=== PATIENT | female | born 1995 | race Caucasian/White ===

== ENCOUNTER 2025-07-02 16:14 | Emergency (ER) | payer OTHER ==
[~2025-07-02] VITALS: Ht 157.5 cm; Wt 59.0 kg
--- NOTE | 2025-07-02 16:40 | NUR ---
"Been having abdominal pain since saturday cramping like. Worse now"
[2025-07-02] MEDS ORDERED: KETOROLAC TROMETHAMINE 15 MG/ML VIAL ONE (17:18)
[2025-07-02] MEDS: KETOROLAC TROMETHAMINE 15 MG/ML VIAL IM ONE (17:20)
[2025-07-02 17:36] LABS: APPEARANCE,URINE CLEAR (CLEAR); BLOOD, URINE 2+ Ery/uL (NEGATIVE); LEUKOCYTE ESTERASE ,URINE TRACE (NEGATIVE); NITRITE, URINE NEGATIVE (NEGATIVE); UGLUCOSE NEGATIVE (NEGATIVE)
[2025-07-02 17:38] LABS: PREGNANCY TEST URINE QUAL NEGATIVE (NEGATIVE)
[2025-07-02 17:59] LABS: ADD URINE CULTURE NO
[2025-07-02 18:03] LABS: PLATELET COUNT (AUTO) 223 K/uL (150-450); RED BLOOD CELL COUNT(AUTO) 4.64 MIL/uL (4.0-5.2); RED CELL DISTRIBUTION WIDTH 13.3 % (11.5-15.0); WHITE BLOOD COUNT (AUTO) 9.7 K/uL (4.3-11.0)
[2025-07-02 18:11] LABS: CALCIUM, SERUM 9.1 mg/dL (8.5-10.1); CREATININE 0.6 mg/dL (0.6-1.3); SODIUM SERUM 138.0 mmol/L (136-145); UREA NITROGEN, BLOOD 12.0 mg/dL (7-18)
[2025-07-02 18:17] LABS: ASPARTATE AMINOTRANSFERASE 22.0 U/L (15-37); TOTAL PROTEIN, SERUM 7.7 g/dL (6.4-8.2)
--- NOTE | 2025-07-02 18:30 | NUR ---
us at bedside
[2025-07-02] MEDS ORDERED: IBUP-1953 PO (19:26)
--- NOTE | 2025-07-02 19:31 | NUR ---
Patient discharged to home in stable condition. Written and verbal after care instructions given. Patient verbalizes understanding of instruction.
[2025-07-02 19:32] VITALS: BP 137/88; TEMP 98.6; O2SAT 99
== END 2025-07-02 19:32 | disposition home or self-care (01) ==
LOC: ER 16:31
DX: Z97.5 Presence of (intrauterine) contraceptive device (principal); N94.6 Dysmenorrhea, unspecified
CPT/HCPCS: 99285; 76856; 96372; 85025; 80048; 83690; 80076; 81001; 36415; 84703 ×2; J1885